=== PATIENT | male | born 1940 | race Caucasian/White ===

== ENCOUNTER → 2017-09-16 08:58 | Outpatient (CLI) | payer MEDICARE, OTHER, SELFPAY ==
[2017-09-16 10:21] LABS: Anion Gap 9 (5-15); BUN 24 mg/dL (7-18); BUN/Creat Ratio 27.4 RATIO (10-20); Calcium,Total 8.9 mg/dL (8.5-10.1); Chloride 104 mmol/L (98-107); Creatinine, Serum 0.88 mg/dL (0.70-1.30); EST Glomerular Filtration Rate 90 mL/min (>60); Est Glom Filt Rate - Afr Amer 109 mL/min (>60); Glucose 128 mg/dL (74-106); Potassium 3.7 mmol/L (3.5-5.1); Sodium Level 143 mmol/L (136-145)
== END ==
PROVIDERS: Family Provider Family Medicine; PCP Family Medicine; Visit Provider Family Medicine
DX: I10 Essential (primary) hypertension (principal)
CPT/HCPCS: 36415; 80048

== ENCOUNTER → 2018-03-13 08:30 | Outpatient (CLI) | payer MEDICARE, OTHER, SELFPAY ==
[2018-03-13 11:14] LABS: Anion Gap 11 (5-15); BUN 22 mg/dL (7-18); BUN/Creat Ratio 23.6 RATIO (10-20); Calcium,Total 8.9 mg/dL (8.5-10.1); Chloride 103 mmol/L (98-107); Cholesterol 145 mg/dL (200); Creatinine, Serum 0.93 mg/dL (0.70-1.30); EST Glomerular Filtration Rate 83 mL/min (>60); Est Glom Filt Rate - Afr Amer 101 mL/min (>60); Glucose 114 mg/dL (74-106); High Density Lipoprotein 51 mg/dL; Potassium 3.4 mmol/L (3.5-5.1); Sodium Level 138 mmol/L (136-145); Triglycerides 153 mg/dL; Very Low Density Lipoprotein 31 mg/dL (5-40)
[2018-03-13 11:34] LABS: Hemoglobin A1c 6.1 % (4.2-6.3)
== END ==
PROVIDERS: Family Provider Family Medicine; PCP Family Medicine; Referring Provider Family Medicine; Visit Provider Family Medicine
DX: I10 Essential (primary) hypertension (principal); E11.9 Type 2 diabetes mellitus without complications
CPT/HCPCS: 36415; 80048; 80061; 83036

== ENCOUNTER → 2018-09-11 08:39 | Outpatient (CLI) | payer MEDICARE, OTHER, SELFPAY ==
[2018-09-11 10:42] LABS: Anion Gap 11 (5-15); BUN 24 mg/dL (7-18); BUN/Creat Ratio 29.2 RATIO (10-20); Calcium,Total 9.1 mg/dL (8.5-10.1); Chloride 105 mmol/L (98-107); Creatinine, Serum 0.82 mg/dL (0.70-1.30); EST Glomerular Filtration Rate 96 mL/min (>60); Est Glom Filt Rate - Afr Amer 117 mL/min (>60); Glucose 108 mg/dL (74-106); Potassium 3.8 mmol/L (3.5-5.1); Sodium Level 143 mmol/L (136-145)
== END ==
PROVIDERS: Family Provider Family Medicine; PCP Family Medicine; Referring Provider Family Medicine; Visit Provider Family Medicine
DX: I10 Essential (primary) hypertension (principal)
CPT/HCPCS: 36415; 80048

== ENCOUNTER → 2019-09-30 09:06 | Outpatient (CLI) | payer MEDICARE, OTHER, SELFPAY ==
[2019-09-30 10:28] LABS: Microalbumin,Random Urine < 5.0 mg/L (NO RANGE EST.)
[2019-09-30 11:09] LABS: Anion Gap 9 (5-15); BUN 19 mg/dL (7-18); BUN/Creat Ratio 20.2 RATIO (10-20); Calcium,Total 8.8 mg/dL (8.5-10.1); Chloride 103 mmol/L (98-107); Cholesterol 166 mg/dL (200); Creatinine, Serum 0.94 mg/dL (0.70-1.30); EST Glomerular Filtration Rate 82 mL/min (>60); Est Glom Filt Rate - Afr Amer 100 mL/min (>60); Glucose 173 mg/dL (74-106); High Density Lipoprotein 51 mg/dL; Potassium 3.7 mmol/L (3.5-5.1); Sodium Level 138 mmol/L (136-145); Triglycerides 142 mg/dL; Very Low Density Lipoprotein 28 mg/dL (5-40)
== END ==
PROVIDERS: PCP Family Medicine; Referring Provider Family Medicine; Visit Provider Family Medicine
DX: I10 Essential (primary) hypertension (principal)
CPT/HCPCS: 36415; 80048; 80061; 82043

== ENCOUNTER → 2020-01-01 15:07 | Outpatient (CLI) | payer MEDICARE, OTHER, SELFPAY ==
--- NOTE | 2020-01-01 15:10 | RAD_ITS ---
STUDY: X-RAY - THORACIC SPINE REASON FOR EXAM: Male, 79 years old. fell a week ago, pain TECHNIQUE: 3 view(s) of the thoracic spine were obtained. COMPARISON: None. FINDINGS: Normal kyphosis of the thoracic spine. Mild dextroscoliosis. There is multilevel endplate spondylosis of the thoracic vertebrae. There is multilevel disc space narrowing of the thoracic spine. The soft tissue structures are unremarkable. RAD/Thoracic Spine 3 Views IMPRESSION: Mild dextroscoliosis with diffuse degenerative disc disease. Electronically Signed: Doe Puckett MD at 15:51 EST Tel , Service support ,
--- NOTE | 2020-01-01 15:11 | RAD_ITS ---
STUDY: X-RAY - UNILATERAL RIBS ( RIGHT ) WITH CHEST REASON FOR EXAM: Male, 79 years old. fell a week ago, right side lateral rib pain TECHNIQUE - RIBS: 4 view(s) of the ribs. TECHNIQUE - CHEST: Single PA view of the chest. COMPARISON: None. FINDINGS - RIBS: Normal visualized ribs without a demonstrated fracture. FINDINGS - CHEST: The lungs are clear and expanded. There is no demonstrated pleural abnormality. Normal size heart. Normal mediastinum and luca. Normal visualized pulmonary arteries. Normal visualized aortic arch and descending thoracic aorta. Normal visualized thoracic spine. Normal visualized ribs, clavicles, and shoulders. There is no demonstrated abnormality of the visualized soft tissue structures of the upper abdomen. RAD/Ribs Uni Min 3V w/PA Chest IMPRESSION: RIBS: Normal x-ray examination of the ribs. CHEST: Normal x-ray examination of the chest. Electronically Signed: Doe Puckett MD at 15:54 EST Tel , Service support ,
== END ==
PROVIDERS: PCP Family Medicine; Referring Provider Family Medicine; Visit Provider Family Medicine
DX: M54.9 Dorsalgia, unspecified (principal); R07.81 Pleurodynia
CPT/HCPCS: 71101; 72072

== ENCOUNTER → 2020-04-06 08:23 | Outpatient (CLI) | payer MEDICARE, OTHER, SELFPAY ==
[2020-04-06 10:40] LABS: Anion Gap 6 (5-15); BUN 24 mg/dL (7-18); BUN/Creat Ratio 24.7 RATIO (10-20); Calcium,Total 9.1 mg/dL (8.5-10.1); Chloride 105 mmol/L (98-107); Creatinine, Serum 0.97 mg/dL (0.70-1.30); EST Glomerular Filtration Rate 79 mL/min (>60); Est Glom Filt Rate - Afr Amer 96 mL/min (>60); Glucose 166 mg/dL (74-106); Potassium 3.8 mmol/L (3.5-5.1); Sodium Level 139 mmol/L (136-145)
[2020-04-06 10:47] LABS: Vitamin D,25 Hydroxy 32.8 ng/mL
[2020-04-08 10:51] LABS: ANTINUCLEAR ANTIBODIES DIRECT Negative (Negative)
== END ==
PROVIDERS: PCP Family Medicine; Visit Provider Family Medicine
DX: E55.9 Vitamin D deficiency, unspecified (principal); I10 Essential (primary) hypertension; M54.9 Dorsalgia, unspecified
CPT/HCPCS: 36415; 80048; 82306; 86038

== ENCOUNTER → 2020-04-12 07:02 | Outpatient (CLI) | payer MEDICARE, OTHER, SELFPAY ==
--- NOTE | 2020-04-12 07:14 | MRI_ITS ---
STUDY: MRI THORACIC SPINE WITHOUT CONTRAST REASON FOR EXAM: Male, 79 years old. BACK PAIN radiates to abdomen, fall onto back 4 months ago TECHNIQUE: Standardized fat and water weighted pulse sequences were obtained in the sagittal and axial planes. COMPARISON: X-ray 01/01/2020 FINDINGS: Normal kyphosis of the thoracic spine. Mild dextroscoliosis of the midthoracic spine. T1-2, T2-3, T3-4, T4-5, T5-6, T6-7, T7-8, T8-9, T9-10, T10-11, T11-12: Normal endplates. Normal disc hydration, heights and morphology of the corresponding intervertebral discs. Normal central canal and intervertebral neural foramina at the corresponding levels. Normal visualized thoracic cord. Normal conus medullaris that terminates at the L1.. The soft tissue structures are unremarkable. MRI/Spine Thoracic (Routine) IMPRESSION: Mild dextroscoliosis and degenerative disc disease but no spinal stenosis or cord compression. Electronically Signed: Doe Puckett MD at 8:54 EST Tel , Service support ,
== END ==
PROVIDERS: PCP Family Medicine; Referring Provider Family Medicine; Visit Provider Family Medicine
DX: M54.9 Dorsalgia, unspecified (principal)
CPT/HCPCS: 72146

== ENCOUNTER → 2020-10-05 08:34 | Outpatient (CLI) | payer MEDICARE, OTHER, SELFPAY ==
[2020-10-05 10:47] LABS: AST(SGOT) 41 U/L (15-37); Alanine Aminotransfer ALT/SGPT 80 U/L (16-61); Albumin, Serum 4.1 g/dL (3.2-5.0); Alkaline Phosphatase 62 U/L (45-117); Anion Gap 9 (5-15); BUN 20 mg/dL (7-18); BUN/Creat Ratio 23.5 RATIO (10-20); Bilirubin, Direct 0.18 mg/dL (0.00-0.30); Calcium,Total 8.8 mg/dL (8.5-10.1); Chloride 102 mmol/L (98-107); Cholesterol 150 mg/dL (200); Creatinine, Serum 0.85 mg/dL (0.70-1.30); EST Glomerular Filtration Rate 92 mL/min (>60); Est Glom Filt Rate - Afr Amer 111 mL/min (>60); Globulin 3.6 g/dL (2.2-4.2); Glucose 243 mg/dL (74-106); High Density Lipoprotein 45 mg/dL; Potassium 3.9 mmol/L (3.5-5.1); Protein, Total 7.7 g/dL (6.4-8.2); Sodium Level 138 mmol/L (136-145); Triglycerides 191 mg/dL; Very Low Density Lipoprotein 38 mg/dL (5-40)
== END ==
PROVIDERS: PCP Family Medicine; Referring Provider Family Medicine; Visit Provider Family Medicine
DX: E11.9 Type 2 diabetes mellitus without complications (principal)
CPT/HCPCS: 36415; 80048; 80061; 80076

== ENCOUNTER 2021-04-05 09:13 | Outpatient (CLI) | payer MEDICARE, OTHER, SELFPAY ==
[2021-04-05 10:46] LABS: Hemoglobin A1c 7.6 % (3.8-5.6)
[2021-04-05 11:14] LABS: ALB/GLOB Ratio 1.1 RATIO (0.9-2.4); AST(SGOT) 28 U/L (15-37); Alanine Aminotransfer ALT/SGPT 43 U/L (16-61); Albumin, Serum 3.9 g/dL (3.2-5.0); Alkaline Phosphatase 51 U/L (45-117); Anion Gap 8 (5-15); BUN 21 mg/dL (7-18); BUN/Creat Ratio 24.6 RATIO (10-20); Chloride 104 mmol/L (98-107); Cholesterol 173 mg/dL (200); Creatinine, Serum 0.85 mg/dL (0.70-1.30); EST Glomerular Filtration Rate 92 mL/min (>60); Est Glom Filt Rate - Afr Amer 111 mL/min (>60); Globulin 3.7 g/dL (2.2-4.2); Glucose 187 mg/dL (74-106); High Density Lipoprotein 53 mg/dL; Potassium 3.8 mmol/L (3.5-5.1); Protein, Total 7.6 g/dL (6.4-8.2); Sodium Level 138 mmol/L (136-145); Triglycerides 142 mg/dL; Very Low Density Lipoprotein 28 mg/dL (5-40)
== END 2021-04-05 23:59 | disposition home or self-care (01) ==
LOC: MFPLAB 09:17
PROVIDERS: PCP Family Medicine; Referring Provider Family Medicine; Visit Provider Family Medicine
DX: E78.5 Hyperlipidemia, unspecified (principal); E11.9 Type 2 diabetes mellitus without complications
CPT/HCPCS: 36415; 80053; 80061; 83036; 84443

== ENCOUNTER → 2021-12-22 | Outpatient (CLI) | payer MEDICARE, OTHER, SELFPAY ==
[2021-12-22 10:13] LABS: ALB/GLOB Ratio 1.1 RATIO (0.9-2.4); AST(SGOT) 35 U/L (15-37); Alanine Aminotransfer ALT/SGPT 64 U/L (16-61); Albumin, Serum 3.8 g/dL (3.2-5.0); Alkaline Phosphatase 52 U/L (45-117); BUN 33 mg/dL (7-18); BUN/Creat Ratio 42.7 RATIO (10-20); Calcium,Total 9.3 mg/dL (8.5-10.1); Cholesterol 144 mg/dL (200); Creatinine, Serum 0.77 mg/dL (0.70-1.30); EST Glomerular Filtration Rate 103 mL/min (>60); Est Glom Filt Rate - Afr Amer 124 mL/min (>60); Globulin 3.5 g/dL (2.2-4.2); Glucose 162 mg/dL (74-106); Protein, Total 7.3 g/dL (6.4-8.2); Triglycerides 108 mg/dL
[2021-12-22 10:14] LABS: Anion Gap 9 (5-15); Chloride 105 mmol/L (98-107); High Density Lipoprotein 55 mg/dL; Potassium 3.6 mmol/L (3.5-5.1); Sodium Level 139 mmol/L (136-145); Very Low Density Lipoprotein 22 mg/dL (5-40)
== END | disposition home or self-care (01) ==
LOC: MFPLAB 08:09
PROVIDERS: PCP Family Medicine; Referring Provider Family Medicine; Visit Provider Family Medicine
DX: E78.5 Hyperlipidemia, unspecified (principal)
CPT/HCPCS: 36415; 80053; 80061

== ENCOUNTER → 2022-04-06 | Outpatient (CLI) | payer MEDICARE, OTHER, SELFPAY ==
--- NOTE | 2022-04-06 10:44 | ECHOD_ITS ---
Reason For Study: Murmur Procedure This was a 2D Doppler, Color Flow transthoracic echocardiogram. Exam performed in department. Left Ventricle Normal LV size. Mild eccentric left ventricular hypertrophy. The left ventricular ejection fraction is 65 %. Normal diastology for age. Right Ventricle Normal right ventricle. Atria The left and right atria are normal. Mitral Valve The mitral valve is structurally normal. No prolapse or stenosis seen. Tricuspid Valve Trivial tricuspid valve insufficiency. Normal pulmonary artery pressure. Aortic Valve Mild aortic stenosis. Pulmonic Valve The pulmonic valve is not well visualized. Great Vessels Mildly calcified aortic root. Pericardium/Pleural No pericardial effusion. MMode/2D Measurements & Calculations LVIDd: 4.3 cm IVSd: 1.3 cm LVOT diam: 2.1 cm LVIDs: 2.7 cm LVPWd: 1.4 cm LVOT area: 3.4 cm2 RVDd: 3.7 cm FS: 37.1 % Ao root diam: 3.0 cm LAV(MOD-bp): 42.7 ml LVAd ap4: 26.5 cm2 LAV(MOD-bp) Indexed: 19.0 ml/m2 LVLd ap4: 8.8 cm LAV(MOD-sp2): 45.1 ml EDV(MOD-sp4): 66.1 ml LAV(MOD-sp4): 35.4 ml EDV(sp4-el): 67.7 ml LVAs ap4: 13.2 cm2 LVLs ap4: 6.7 cm ESV(MOD-sp4): 22.2 ml ESV(sp4-el): 21.9 ml EF(MOD-sp4): 66.4 % EF(sp4-el): 67.7 % SV(MOD-sp4): 43.8 ml SV(sp4-el): 45.8 ml LA A4 area: 13.6 cm2 LA dimension(2D): 3.9 cm RA A4 area: 11.0 cm2 Time Measurements MV dec time: 0.37 sec Doppler Measurements & Calculations MV E max ed: 73.7 cm/sec Lat Peak E' Ed: 9.7 cm/sec Med Peak E' Ed: 7.0 cm/sec MV A max ed: 113.9 cm/sec E/E' lat: 7.6 E/E' med: 10.5 MV E/A: 0.65 Ao V2 max: 216.3 cm/sec LV V1 max: 121.1 cm/sec MV dec slope: 199.6 cm/sec2 Ao max P.3 mmHg LV V1 max P.9 mmHg Ao V2 mean: 149.6 cm/sec LV V1 mean P.2 mmHg Ao mean P.5 mmHg LV V1 mean: 82.5 cm/sec Ao V2 VTI: 42.7 cm LV V1 VTI: 25.9 cm AV (velocity ratio): 0.61 ALAN(I,D): 2.1 cm2 ALAN(V,D): 1.9 cm2 SV(LVOT): 88.7 ml PA V2 max: 98.5 cm/sec TR max ed: 245.1 cm/sec TR max P.0 mmHg ECHO/Echo Complete Interpretation Summary Mild eccentric left ventricular hypertrophy. The left ventricular ejection fraction is 65 %. Mild aortic stenosis. Mildly calcified aortic root. Ordering Physician: Antelmo Barrientos Referring Physician: Ag Aldana Performed By: Kirstin Cat, TRELL, RVT
--- NOTE | 2022-04-06 14:17 | STRESSREP ---
Stress Test Report Date: 04/06/2022 Procedure: Exercise tolerance test Indications: Assess chronotropic competence Consent: Per the patient Procedure: The patient exercised on a Deepak protocol for 6 minutes achieving a peak heart rate of 118 bpm (84% predicted maximal heart rate) with a peak blood pressure 180/68 mmHg and a peak MET capacity of approximately 7.0 MET's. The baseline ECG demonstrated nonspecific ST changes. The peak exercise ECG demonstrated upward sloping ST depressions. In the recovery, there was more horizontal ST depression of 1 mm.. There were no cardiac dysrhythmias pretest, during exercise, or recovery. The functional capacity was considered average. The patient had no complaints of chest discomfort during exercise or recovery. The examination was discontinued secondary to target heart rate being achieved. Impression: 1. Technically adequate (percent predicted maximal heart rate greater than 85%) exercise tolerance test 2. Horizontal ST depression of 1 mm in inferior leads in recovery. This could denote ischemia however the specificity is reduced because of baseline changes. Recommend repeat study with imaging modality to evaluate for ischemia. 3. There were no cardiac dysrhythmias during exercise or recovery This note was generated with nap- [employer] software. It may contain incorrect words, spelling, and punctuation that were not noted in checking the note before signing.
== END | disposition home or self-care (01) ==
LOC: CVS 10:40
PROVIDERS: PCP Family Medicine; Referring Provider Internal Medicine Cardiovascular Disease; Visit Provider Internal Medicine Cardiovascular Disease
DX: R00.1 Bradycardia, unspecified (principal); E11.9 Type 2 diabetes mellitus without complications; I44.0 Atrioventricular block, first degree; R06.02 Shortness of breath; I10 Essential (primary) hypertension; R00.2 Palpitations
CPT/HCPCS: 93017; 93225; 93226; 93306

== ENCOUNTER → 2022-06-21 | Outpatient (CLI) | payer MEDICARE, OTHER, SELFPAY ==
[2022-06-21 11:13] LABS: Anion Gap 10 (5-15); BUN 21 mg/dL (7-18); BUN/Creat Ratio 21.4 RATIO (10-20); Calcium,Total 8.9 mg/dL (8.5-10.1); Chloride 105 mmol/L (98-107); Cholesterol 147 mg/dL (200); Creatinine, Serum 0.98 mg/dL (0.70-1.30); EST Glomerular Filtration Rate 78 mL/min (>60); Est Glom Filt Rate - Afr Amer 94 mL/min (>60); Glucose 191 mg/dL (74-106); High Density Lipoprotein 54 mg/dL; Potassium 3.9 mmol/L (3.5-5.1); Sodium Level 140 mmol/L (136-145); Triglycerides 103 mg/dL; Very Low Density Lipoprotein 21 mg/dL (5-40)
== END | disposition home or self-care (01) ==
PROVIDERS: PCP Family Medicine; Referring Provider Family Medicine; Visit Provider Family Medicine
DX: I10 Essential (primary) hypertension (principal)
CPT/HCPCS: 36415; 80048; 80061

== ENCOUNTER → 2022-06-26 | Outpatient (CLI) | payer MEDICARE, OTHER, SELFPAY ==
--- NOTE | 2022-06-26 17:28 | STRESSREP ---
Stress Test Report Pharmacologic myocardial perfusion stress test. 82-year-old man with a history of chest pain Resting EKG demonstrates sinus bradycardia with a rate of 58 bpm. Resting blood pressure is 198/84 mmHg. 0.4 mg of regadenoson was infused per usual protocol followed by rapid intravenous saline flush injection. Continuous EKG monitoring was performed. The maximum heart rate was 73 bpm which was 52% of max impacted heart rate the maximum workload was 1 metabolic equivalent. At rest there were no ST or T wave changes noted to suggest ischemia and at peak infusion nonspecific ST changes were noted which did not meet the criteria for ischemia. No clinical angina is noted. The final blood pressure was 118/72 mmHg. Myocardial perfusion protocol. 14.8 mCi of technetium 99m sestamibi was injected at rest. 0.4 mg of regadenoson was infused per usual protocol. At peak infusion 45 mCi of technetium 99m sestamibi was injected stress images were obtained stress and rest images were reconstructed and compared in the short axis vertical long and horizontal long axis. Gated images were also obtained. Perfusion SPECT analysis: Review of the stress images demonstrate normal uptake of tracer noted in all areas of the myocardium is a small defect noted in the apex. The resting images similar demonstrated normal uptake of tracer noted in all areas of the myocardium. The above is suggestive of a small apical perfusion defect suggestive of ischemia Gated SPECT analysis: The gated ejection fraction is 67%. Conclusion: Abnormal pharmacologic myocardial perfusion stress test with mild apical ischemia. Preserved ejection fraction.
== END | disposition home or self-care (01) ==
PROVIDERS: PCP Family Medicine; Referring Provider Internal Medicine Cardiovascular Disease; Visit Provider Internal Medicine Cardiovascular Disease
DX: R00.1 Bradycardia, unspecified (principal); I47.1 Supraventricular tachycardia; I44.0 Atrioventricular block, first degree; E78.5 Hyperlipidemia, unspecified; R94.31 Abnormal electrocardiogram [ECG] [EKG]
CPT/HCPCS: 78452; 93017; A9500; A4216; J2785

== ENCOUNTER → 2022-07-18 | Outpatient (CLI) | payer MEDICARE, OTHER, SELFPAY ==
--- NOTE | 2022-07-18 10:27 | RAD_ITS ---
INDICATION: SOB EXAMINATION/TECHNIQUE: X-RAY - XR Chest 2 Views COMPARISON: 01/01/2020 FINDINGS: LINES/DEVICES: None. LUNGS: No consolidation, edema or effusion. No pneumothorax. MEDIASTINUM AND CARDIOVASCULAR STRUCTURES: Cardiac silhouette not enlarged. Central airways and mediastinal contour are unremarkable. BONES AND SOFT TISSUES: No acute changes. RAD/Chest PA and Lateral IMPRESSION: No radiographic evidence of acute cardiopulmonary disease. Electronically Signed: Vimal Sharpe MD at 19:34 EDT ,
[2022-07-18 11:06] LABS: Hematocrit 41.6 % (40-54); Mean Corp Hgb Conc 33.7 g/dL (32-36); Mean Corpuscular Hgb 30.9 pg (27.0-32.0); Mean Corpuscular Volume 91.8 fL (80-94); Mean Platelet Vol. 11.1 fl (6.2-12.0); Platelet Count 165 K/mm3 (150-450); RBC Distribution Width CV 12.8 % (11.6-14.6); RBC Distribution Width SD 43.5 fl (35.1-43.9); Red Blood Count 4.53 M/mm3 (4.6-6.2); White Blood Count 6.9 K/mm3 (4.4-11.0)
[2022-07-18 11:18] LABS: Prothrombin Time (Protime)PT. 13.2 SECONDS (11.7-14.9)
[2022-07-18 11:19] LABS: Partial Thromboplast Time 28.3 Seconds (24.1-36.2)
[2022-07-18 11:51] LABS: Anion Gap 10 (5-15); BUN 33 mg/dL (7-18); BUN/Creat Ratio 38.1 RATIO (10-20); Calcium,Total 9.5 mg/dL (8.5-10.1); Chloride 106 mmol/L (98-107); Creatinine, Serum 0.87 mg/dL (0.70-1.30); EST Glomerular Filtration Rate 90 mL/min (>60); Est Glom Filt Rate - Afr Amer 108 mL/min (>60); Glucose 216 mg/dL (74-106); Potassium 3.8 mmol/L (3.5-5.1); Sodium Level 139 mmol/L (136-145)
== END | disposition home or self-care (01) ==
LOC: LAB 10:16
PROVIDERS: PCP Family Medicine; Referring Provider Physician Assistant Medical; Visit Provider Physician Assistant Medical
DX: R94.39 Abnormal result of other cardiovascular function study (principal); R94.31 Abnormal electrocardiogram [ECG] [EKG]; I44.0 Atrioventricular block, first degree; E78.5 Hyperlipidemia, unspecified; I10 Essential (primary) hypertension; R06.02 Shortness of breath
CPT/HCPCS: 36415; 71046; 80048; 85027; 85610; 85730

== ENCOUNTER 2022-07-24 07:26 | Day surgery (SDC) | payer MEDICARE, OTHER, SELFPAY ==
--- NOTE | 2022-07-20 12:35 | PCM.HP.BLA ---
History and Physical Date of Admission: 07/24/22 Has had an exercise treadmill stress test done. He had normal chronotropic response. ECG changes suggestive of ischemia were noted but specificity reduced because of baseline abnormalities. Echocardiogram showed normal left ventricular systolic function. Mild aortic valve stenosis was noted. 48-hour Holter monitor was done. It showed predominantly sinus bradycardia. No blocks or significant arrhythmias were noted. He had nuclear stress test on 06/26/2022 that was abnormal with mild apical ischemia and showed a preserved ejection fraction. On account of abnormal stress test, it was recommended to proceed with heart catheterization. Patient has been complaining of dry mouth since he started on Procardia. Intake Vital Signs: See EMR Intake Visit Reasons: [facility] Allergies No Known Allergies Allergy (Unverified 06/14/22 09:42) Medications See E[facility] Medical History Apnea Bradycardia Diabetes mellitus Essential (primary) hypertension GERD (gastroesophageal reflux disease) Hip arthritis Hyperlipidemia Junctional rhythm Lower back pain Murmur Obesity Prostate hyperplasia without urinary obstruction Type 2 diabetes mellitus Vitamin D deficiency Surgical History Hx of appendectomy Hx of eye surgery Hx of hemorrhoidectomy Family History Mother Heart disease Social History Smoking Status: Former smoker how long ago did patient quit smokin+ years alcohol intake: current alcohol intake frequency: a few times a week substance use type: does not use caffeine: Yes Type: coffee Number of servings: 3 ROS Const Const: Negative for fatigue, weakness, body ache, fever(s), headache(s), chills, frequent falls, night sweats, daytime sleepiness, difficulty sleeping, excessive sweating, weight gain, weight loss, increased appetite, poor appetite, anorexia or other Eyes Eyes: Negative for blurry vision or double vision ENT ENT: Negative for headache(s), dizziness or balance problems Cardio Chest Pain: Yes (HX costochondritis) Character: sharp Palpitations: No Edema: None Muscle aches with walking: None Resp Respiratory: Negative for SOB with activity, SOB at rest, SOB orthopnea\SOB lying down, Cough, Coughing up blood/hemoptysis, chest congestion, pain on inspiration, snoring, stridor, wheezing, crackles, paroxysmal nocturnal dyspnea or other Musc Musc: Negative for muscle aches/ myalgia, muscle weakness, joint pain or balance problems Neuro Neuro: Negative for dizziness, lightheadedness, near syncope, syncope, orthostatic symptoms, frequent falls, headache(s), weakness, confusion, memory loss, restless legs, blurry vision, double vision, vertigo, seizures, lack of coordination or other Endo Endo: Negative for fatigue or excessive sweating Cardiology Exam Const Appearance: comfortable and no acute distress Nutritional Appearance: well nourished Neck Neck: no JVD Carotids: Negative bruit Chest Auscultation: Bilateral: Clear to Auscultation Cardio Rate: regular rate Rhythm: regular rhythm Heart sounds: S1 normal and S2 normal 2/6 systolic murmur at base Neuro General: patient alert, patient awake and patient oriented x3 Extremities Lower Extremity Edema: None: Bilateral Supplemental Info Supplemental Information ECHOCARDIOGRAM 04/06/22 Interpretation Summary Mild eccentric left ventricular hypertrophy. The left ventricular ejection fraction is 65 %. Mild aortic stenosis. Mildly calcified aortic root. Stress Test Report: Date: 04/06/2022 Procedure: Exercise tolerance test Indications: Assess chronotropic competence Consent: Per the patient Procedure: The patient exercised on a Deepak protocol for 6 minutes achieving a peak heart rate of 118 bpm (84% predicted maximal heart rate) with a peak blood pressure 180/68 mmHg and a peak MET capacity of approximately 7.0 MET's. The baseline ECG demonstrated nonspecific ST changes. The peak exercise ECG demonstrated upward sloping ST depressions. In the recovery, there was more horizontal ST depression of 1 mm.. There were no cardiac dysrhythmias pretest, during exercise, or recovery. The functional capacity was considered average. The patient had no complaints of chest discomfort during exercise or recovery. The examination was discontinued secondary to target heart rate being achieved. Impression: 1. Technically adequate (percent predicted maximal heart rate greater than 85%) exercise tolerance test 2. Horizontal ST depression of 1 mm in inferior leads in recovery. This could denote ischemia however the specificity is reduced because of baseline changes. Recommend repeat study with imaging modality to evaluate for ischemia. 3. There were no cardiac dysrhythmias during exercise or recovery [employer] EVENT MONITOR 04/05/21 Predominant Rhythm: SB 1 degree AV Block Junctional Rhythm Accelerated Junctional Rhythm Junctional Tchycardia Ectopic Atrial Runs PAC 0.08% 48HR HOLTER MONITOR 04/06/22 There were a total of [id number] beats recorded over the 48HR period. Normal Sinus Rhythm Average HR was 58 BPM No atrial fibrillation noted. No runs noted Patient kept a diary with no symptoms reported Labs: LDL Cholesterol 67 mg/dL (0-130) HDL Cholesterol 55 mg/dL (40-) Cholesterol 144 mg/dL (200) Triglycerides 108 mg/dL (-199) Diagnostics: Electrocardiogram Echocardiogram Stress Test Pulmonary: No Data to Display Past Visits: No Data to Display Assessment and Plan Assessment and Plan (1) Bradycardia: Status: Chronic Plan: Normal chronotropic response noted to exercise. Patient counseled and reassured. Avoid negative chronotropic agents. (2) Essential (primary) hypertension: Status: Chronic Plan: Procardia was discontinued to assist with dry mouth. Benazepril was increased to 40 mg once daily. Patient counseled to keep log of blood pressure readings and contact our office with an update. (3) Hyperlipidemia: Status: Chronic Plan: On lovastatin. Continue as per primary care physician. (4) Diabetes mellitus: Status: Inactive Plan: As per PCP. (5) Abnormal ECG during exercise stress test: Status: Chronic Plan: On account of abnormal ECG, he proceeded with nuclear stress test. His stress test on 06/26/2022 was abnormal for apical ischemia. He will proceed with heart catheterization. Depending on results, further recommendation will be made. (6) Aortic stenosis: Status: Chronic Comment: Mild aortic valve stenosis noted on echocardiogram. Plan: Periodic clinical and echo surveillance. (7) Junctional tachycardia: Status: Acute (8) First degree AV block: Status: Acute
[2022-07-23 11:23] VITALS: BMI 32.8
--- NOTE | 2022-07-30 11:23 | CL.D_ITS ---
Patient Name: NIRMALA DE LA VEGA Study Date: 07/24/2022 Performing: Antelmo Barrientos MD Ht: 71 inches 180.34 cm : 1940 Wt: 234.99 lbs 106.59 kg Age: 82 Gender: male BSA: 2.26 PROCEDURE(S) PERFORMED [id number] [facility] INDICATIONS Indications: Suspected CAD Heart Failure: None Stress/Imaging Stress Test w/SPECT MPI: Yes Result: Positive Intermediate RiskStress Test with SPECT MPI: Positive Intermediate Risk Angina Classification Anginal Classification w/in 2 Weeks: No symptoms CAD Presentations: No Sxs, no angina. CONCLUSIONS Mid LAD bridging RECOMMENDATIONS Medical therapy DESCRIPTION OF PROCEDURE The patient arrived to the procedure lab. The risks and benefits of the procedure as well as a full description of our services here and current unavailability of surgical backup were fully explained to the patient and/or their significant other prior to the catheterization. The Timeout was completed, verifying the correct patient and procedure. The patient's procedural site was prepped and draped in the usual fashion. Local anesthetic was given subcutaneously to right radial region with Lidocaine 2%. Using a modified Seldinger technique, arterial access was obtained via the right radial artery, a 6Fr sheath was inserted. Right Coronary Artery selective angiography was then performed in multiple views using a 5 Fr. 4.0 [place] catheter. Left Coronary Artery selective angiography was performed in multiple views using a 5 Fr. 4.0 [place] catheter.The arterial sheath was pulled and a TR Band was applied for hemostasis. 14cc air inserted. CORONARY ANGIOGRAPHY DOMINANCE: Right Dominant LEFT MAIN: Minmal luminal irregularities LEFT ANTERIOR DESCENDING ARTERY: Calcified but no signficant intraluminal stenosis. Mid LAd bridging noted. LAD: Luminal Irregularities 20% Proximal lesion in LAD OM 1: Tubular 50% Proximal lesion in 1st OM OM 2: Tubular 50% Proximal lesion in 2nd OM RIGHT CORONARY ARTERY: RCA: Tubular 50% Mid lesion in RCA RT PDA: Tubular 70% Ostial lesion in Right PDA COMPLICATIONS No Complications PROCEDURE MEDICATIONS Fentanyl 50 mcg IV Versed 1 mg IV Versed 1 mg IV Oxygen: 2 L/min via nasal cannula Heparin given IA 07/24/2022 08:49:36 Verapamil 2.5mg, Ntg 200mcgs, 2000 units of Heparin given IA 07/24/2022 08:49:36 IV Bolus: .9 NaCl 250 ml total 07/24/2022 08:52:26 SUMMARY OF HEMODYNAMIC DATA Time AIR REST ECG 07:50:04 AO 128/57 (88) SA 08:54:08 ECG 09:16:16 AIR REST 09:16:22 Signed By Antelmo Barrientos MD On 07/30/2022 11:22:37 Antelmo Barrientos MD
== END 2022-07-24 10:57 | disposition home or self-care (01) ==
LOC: CLSP 07:28
PROVIDERS: PCP Family Medicine; Referring Provider Internal Medicine Cardiovascular Disease; Visit Provider Internal Medicine Cardiovascular Disease
DX: Q24.5 Malformation of coronary vessels (principal); E11.9 Type 2 diabetes mellitus without complications; R00.1 Bradycardia, unspecified; Z87.891 Personal history of nicotine dependence; I10 Essential (primary) hypertension; E78.5 Hyperlipidemia, unspecified; E66.9 Obesity, unspecified; Z79.899 Other long term (current) drug therapy; I35.0 Nonrheumatic aortic (valve) stenosis; I44.0 Atrioventricular block, first degree
CPT/HCPCS: 93454; 99152; 99153; J7040; Q9967; C1769; C1894

== ENCOUNTER → 2023-01-09 | Outpatient (CLI) | payer MEDICARE, OTHER, SELFPAY ==
[2023-01-09 11:17] LABS: Anion Gap 12 (5-15); BUN 24 mg/dL (7-18); BUN/Creat Ratio 28.1 RATIO (10-20); Chloride 104 mmol/L (98-107); Cholesterol 153 mg/dL (200); Creatinine, Serum 0.85 mg/dL (0.70-1.30); EST Glomerular Filtration Rate 91 mL/min (>60); Est Glom Filt Rate - Afr Amer 110 mL/min (>60); Glucose 152 mg/dL (74-106); High Density Lipoprotein 60 mg/dL; Potassium 3.7 mmol/L (3.5-5.1); Sodium Level 139 mmol/L (136-145); Triglycerides 138 mg/dL; Very Low Density Lipoprotein 28 mg/dL (5-40)
[2023-01-09 11:28] LABS: Microalbumin,Random Urine < 5.0 mg/L (NO RANGE EST.)
== END | disposition home or self-care (01) ==
LOC: MTLAB 08:32
PROVIDERS: PCP Family Medicine; Referring Provider Family Medicine; Visit Provider Family Medicine
DX: E11.65 Type 2 diabetes mellitus with hyperglycemia (principal)
CPT/HCPCS: 36415; 80048; 80061; 82043

== ENCOUNTER → 2023-06-04 | Outpatient (CLI) | payer MEDICARE, OTHER, SELFPAY ==
--- NOTE | 2023-06-04 13:58 | ECHOD_ITS ---
Reason For Study: Chest pain Procedure This was a 2D Doppler, Color Flow transthoracic echocardiogram. Exam performed in department. Left Ventricle Normal LV size. Mild concentric left ventricular hypertrophy. The left ventricular ejection fraction is 65 %. Normal diastology for age. Right Ventricle Normal right ventricle. Atria The left and right atria are normal. Mitral Valve Trivial mitral valve insufficiency. Tricuspid Valve Trivial tricuspid valve insufficiency. Normal pulmonary artery pressure. Aortic Valve Trisinus/trileaflet aortic valve. Mild diffuse aortic valve thickening. Mild aortic stenosis. Pulmonic Valve The pulmonic valve is not well visualized. Great Vessels Normal sized aortic root. Pericardium/Pleural No pericardial effusion. MMode/2D Measurements & Calculations LVIDd: 4.9 cm IVSd: 1.5 cm LVOT diam: 2.1 cm LVIDs: 2.5 cm LVPWd: 1.3 cm LVOT area: 3.5 cm2 RVDd: 3.8 cm FS: 49.6 % Ao root diam: 3.1 cm LAV(MOD-sp4): 41.3 ml LVAd ap4: 30.9 cm2 LVLd ap4: 9.2 cm EDV(MOD-sp4): 87.0 ml EDV(sp4-el): 88.5 ml LVAs ap4: 13.2 cm2 LVLs ap4: 7.2 cm ESV(MOD-sp4): 22.6 ml ESV(sp4-el): 20.5 ml EF(MOD-sp4): 74.1 % EF(sp4-el): 76.8 % LVAd ap2: 31.5 cm2 SV(MOD-sp4): 64.5 ml SV(MOD-sp2): 73.8 ml LVLd ap2: 9.2 cm EDV(MOD-sp2): 93.1 ml EDV(sp2-el): 92.1 ml LVAs ap2: 12.2 cm2 LVLs ap2: 7.0 cm ESV(MOD-sp2): 19.3 ml ESV(sp2-el): 18.1 ml EF(MOD-sp2): 79.2 % SV(sp4-el): 68.0 ml LA dimension(2D): 3.9 cm LA A4 area: 15.5 cm2 RA A4 area: 13.2 cm2 TAPSE: 3.0 cm Time Measurements MV dec time: 0.27 sec Doppler Measurements & Calculations MV E max ed: 102.1 cm/sec Lat Peak E' Ed: 8.5 cm/sec Med Peak E' Ed: 8.2 cm/sec MV A max ed: 118.5 cm/sec E/E' lat: 11.9 E/E' med: 12.5 MV E/A: 0.86 Ao V2 max: 289.8 cm/sec LV V1 max: 158.4 cm/sec MV dec slope: 372.2 cm/sec2 Ao max P.6 mmHg LV V1 max P.0 mmHg Ao V2 mean: 181.3 cm/sec LV V1 mean P.1 mmHg Ao mean P.3 mmHg LV V1 mean: 104.9 cm/sec Ao V2 VTI: 57.3 cm LV V1 VTI: 34.0 cm AV (velocity ratio): 0.59 ALAN(I,D): 2.1 cm2 ALAN(V,D): 1.9 cm2 SV(LVOT): 119.9 ml PA V2 max: 124.0 cm/sec TR max ed: 245.5 cm/sec TR max P.1 mmHg ECHO/Echo Complete Interpretation Summary Mild concentric left ventricular hypertrophy. The left ventricular ejection fraction is 65 %. Mild aortic stenosis. Ordering Physician: Antelmo Barrientos Referring Physician: Ag Aldana Performed By: Meri Radford RDCS
== END | disposition home or self-care (01) ==
LOC: CVS 13:54
PROVIDERS: PCP Family Medicine; Referring Provider Internal Medicine Cardiovascular Disease; Visit Provider Internal Medicine Cardiovascular Disease
DX: R07.9 Chest pain, unspecified (principal); I47.10 Supraventricular tachycardia, unspecified; I10 Essential (primary) hypertension
CPT/HCPCS: 93306

== ENCOUNTER → 2023-07-10 | Outpatient (CLI) | payer MEDICARE, OTHER, SELFPAY ==
[2023-07-10 11:05] LABS: Anion Gap 10 (5-15); BUN 23 mg/dL (7-18); BUN/Creat Ratio 24.9 RATIO (10-20); Calcium,Total 9.5 mg/dL (8.5-10.1); Chloride 104 mmol/L (98-107); Cholesterol 158 mg/dL (200); Creatinine, Serum 0.92 mg/dL (0.70-1.30); EST Glomerular Filtration Rate 83 mL/min (>60); Est Glom Filt Rate - Afr Amer 100 mL/min (>60); Glucose 179 mg/dL (74-106); High Density Lipoprotein 55 mg/dL; Potassium 3.9 mmol/L (3.5-5.1); Sodium Level 136 mmol/L (136-145); Triglycerides 129 mg/dL; Very Low Density Lipoprotein 26 mg/dL (5-40)
== END | disposition home or self-care (01) ==
LOC: MFPLAB 08:45
PROVIDERS: PCP Family Medicine; Visit Provider Family Medicine
DX: E11.65 Type 2 diabetes mellitus with hyperglycemia (principal)
CPT/HCPCS: 36415; 80048; 80061

== ENCOUNTER → 2023-11-06 | Outpatient (CLI) | payer MEDICARE, OTHER, SELFPAY ==
[2023-11-06 10:35] LABS: ALB/GLOB Ratio 1.1 RATIO (0.9-2.4); AST(SGOT) 38 U/L (15-37); Alanine Aminotransfer ALT/SGPT 59 U/L (16-61); Albumin, Serum 3.9 g/dL (3.2-5.0); Alkaline Phosphatase 62 U/L (45-117); Anion Gap 11 (5-15); BUN 24 mg/dL (7-18); BUN/Creat Ratio 26.1 RATIO (10-20); Calcium,Total 9.3 mg/dL (8.5-10.1); Chloride 107 mmol/L (98-107); Cholesterol 149 mg/dL (200); Creatinine, Serum 0.92 mg/dL (0.70-1.30); EST Glomerular Filtration Rate 84 mL/min (>60); Est Glom Filt Rate - Afr Amer 101 mL/min (>60); Globulin 3.6 g/dL (2.2-4.2); Glucose 200 mg/dL (74-106); High Density Lipoprotein 55 mg/dL; Potassium 3.8 mmol/L (3.5-5.1); Protein, Total 7.5 g/dL (6.4-8.2); Sodium Level 142 mmol/L (136-145); Triglycerides 152 mg/dL; Very Low Density Lipoprotein 30 mg/dL (5-40)
== END | disposition home or self-care (01) ==
LOC: MTLAB 08:00
PROVIDERS: PCP Family Medicine; Referring Provider Internal Medicine Cardiovascular Disease; Visit Provider Internal Medicine Cardiovascular Disease
DX: I25.10 Atherosclerotic heart disease of native coronary artery without angina pectoris (principal); I10 Essential (primary) hypertension; E78.5 Hyperlipidemia, unspecified
CPT/HCPCS: 36415; 80053; 80061

== ENCOUNTER → 2024-04-10 | Outpatient (CLI) | payer MEDICARE, OTHER, SELFPAY ==
[2024-04-10 10:54] LABS: Microalbumin,Random Urine < 5.0 mg/L (NO RANGE EST.)
[2024-04-10 13:03] LABS: ALB/GLOB Ratio 1.2 RATIO (0.9-2.4); AST(SGOT) 31 U/L (15-37); Alanine Aminotransfer ALT/SGPT 48 U/L (16-61); Albumin, Serum 4.1 g/dL (3.2-5.0); Alkaline Phosphatase 49 U/L (45-117); Anion Gap 9 (5-15); BUN 26 mg/dL (7-18); Calcium,Total 9.8 mg/dL (8.5-10.1); Chloride 105 mmol/L (98-107); Cholesterol 177 mg/dL (200); Creatinine, Serum 0.74 mg/dL (0.70-1.30); EST Glomerular Filtration Rate 107 mL/min (>60); Est Glom Filt Rate - Afr Amer 129 mL/min (>60); Globulin 3.5 g/dL (2.2-4.2); Glucose 136 mg/dL (74-106); High Density Lipoprotein 63 mg/dL; Potassium 3.7 mmol/L (3.5-5.1); Protein, Total 7.6 g/dL (6.4-8.2); Sodium Level 138 mmol/L (136-145); Triglycerides 122 mg/dL; Very Low Density Lipoprotein 24 mg/dL (5-40)
== END | disposition home or self-care (01) ==
LOC: MFPLAB 08:57
PROVIDERS: PCP Family Medicine; Referring Provider Family Medicine; Visit Provider Family Medicine
DX: E11.65 Type 2 diabetes mellitus with hyperglycemia (principal)
CPT/HCPCS: 36415; 80053; 80061; 82043; 82570

== ENCOUNTER → 2024-10-08 | Outpatient (CLI) | payer MEDICARE, OTHER, SELFPAY ==
[2024-10-08 10:43] LABS: Anion Gap 14 (5-15); BUN 23 mg/dL (4-19); BUN/Creat Ratio 34.9 RATIO (10-20); Calcium,Total 9.2 mg/dL (7.6-11.0); Carbon Dioxide 22.4 mmol/L (21.0-32.0); Chloride 102 mmol/L (98-108); Glucose 159 mg/dL (70-99); Potassium 3.9 mmol/L (3.3-5.1)
== END | disposition home or self-care (01) ==
LOC: MFPLAB 08:51
PROVIDERS: PCP Family Medicine; Referring Provider Family Medicine; Visit Provider Family Medicine
DX: I10 Essential (primary) hypertension (principal)
CPT/HCPCS: 36415; 80048